=== PATIENT | male | born 1960 | race Caucasian/White ===

== ENCOUNTER 2019-09-21 13:45 | Emergency (ER) | payer BC, SELFPAY ==
--- NOTE | ~2019-09-21 | XR_ITS ---
EXAMINATION: XR chest 2V DATE: 09/21/2019 14:21 INDICATION: Right lower rib pain TECHNIQUE: Frontal and lateral views of the chest are obtained on four radiographs COMPARISON: 06/19/2015 FINDINGS: The lungs are free of acute opacities. There is no pleural effusion or pneumothorax. The ca rdiomediastinal silhouette is normal. There is mild thoracic spondylosis. IMPRESSION: 1. No acute cardiopulmonary abnormality. Reviewed, dictated and finalized at location A.
[2019-09-21 13:52] VITALS: BP 155/88; PULSE 88; RESP 20; TEMP 36.1; O2SAT 99
--- NOTE | 2019-09-21 14:11 | ED.GENADULT ---
HPI - General Adult General Chief complaint: Unspecified Stated complaint: tender front chest to back Time Seen by Provider: 09/21/19 14:04 Source: patient and RN notes reviewed Mode of arrival: ambulatory Limitations: no limitations History of Present Illness HPI narrative: Patient presents today with a one-month history of right anterior chest wall/skin pain that extends laterally to the mid back. States symptoms have not been improving, but wax and wanes. Denies recent illness, fever, cough, shortness of breath. No cardiac history.He currently rates his pain 6/10 and has been taking Tylenol arthritis with mild relief. States the pain feels similar to when he had shingles in the past, but has not had a rash or skin abnormality. MD complaint: chest wall pain Related Data Home Medications Medication Instructions Recorded Confirmed doxycycline hyclate 100 mg PO DAILY 09/21/19 09/21/19 etodolac 400 mg PO DAILY 09/21/19 09/21/19 losartan 100 mg PO DAILY 09/21/19 09/21/19 metronidazole 0.75 % TOPICAL DAILY 09/21/19 09/21/19 sildenafil 100 mg PO DAILY 09/21/19 09/21/19 Allergies Allergy/AdvReac Type Severity Reaction Status Date / Time celecoxib [From Celebrex] AdvReac Abdominal Verified 09/21/19 14:09 Pain Review of Systems Review of Systems: Narrative: CONSTITUTIONAL: Denies body aches, fever, chills, or sweats. EYES: Denies visual changes, redness, or discharge. ENT: Denies rhinorrhea, congestion, sore throat, or otalgia. CARDIOVASCULAR: Denies chest pain, palpitations, or edema.+Chest wall pain RESPIRATORY: Denies cough or dyspnea. GASTROINTESTINAL: Denies abdominal pain, nausea, vomiting, or diarrhea. GENITOURINARY: Denies dysuria or hematuria. SKIN: Denies rash, itching, or wounds. MUSCULOSKELETAL: Denies back pain, joint pain, or myalgia. NEUROLOGIC: Denies headache, numbness, tingling, or weakness. PSYCH: Denies depression or anxiety. [facility] Family History Family History (Updated 12/04/13 @ 07:13 by DOCTOR UNKNOWN) Sibling Family history of arthritis Family history of kidney disease Family history of malignant neoplasm of thyroid Mother Family history of Alzheimer's disease Father Family history of heart disease in male family member before age 55 Social History Social History Smoking status: Never smoker Alcohol intake: current Comments At time of signature, I have reviewed and agree with nursing past medical, surgical, social and family history unless otherwise noted. Please see nursing chart for further information. There is no relevant family history pertinent to the presenting complaint Exam Narrative: Exam Narrative: GENERAL: Well-appearing, well-nourished, and in no acute distress. HEAD: Normocephalic, atraumatic. EYES: EOMI. No redness or drainage. Conjunctivae normal. ENT: Mucous membranes pink and moist. NECK: Normal AROM. Supple. No lymphadenopathy. CHEST: No respiratory distress. Clear to auscultation. Patient localizes pain at the beginning at the right sternal border of the lower ribs, and extending in a dermatomal pattern laterally into the mid back. No rash or skin abnormalities noted. Mildly tender to palpation.No erythema, ecchymosis, edema, crepitus noted. HEART: Regular rate and rhythm. No murmur appreciated. Normal peripheral pulses. EXTREMITIES: Normal range of motion. No edema. SKIN: Warm, dry, no rash. Capillary refill normal. Normal skin turgor. NEURO: No focal deficits. Alert and oriented x3. Gait steady. PSYCH: Normal affect. No signs of depression or anxiety. Course Course Emergency Course: Chest x-ray is negative. Patient is describing pain is similar to previous shingles episodes. We will treat with some valacyclovir to see if there is any relief in symptoms. Instructed him to follow-up with his PCP in 3 to 4 days if symptoms do not improve. Vital Signs Vital signs: Vital Signs Temperature 97 F L 09/21/19 13:52 Pulse Rate 88 06/
== END 2019-09-21 14:44 | disposition home or self-care (01) ==
PROVIDERS: Emergency Provider Nurse Practitioner; PCP Family Medicine
DX: R07.89 Other chest pain (principal); I10 Essential (primary) hypertension; Z96.653 Presence of artificial knee joint, bilateral
CPT/HCPCS: 71046; 99203; G0463

== ENCOUNTER 2021-04-04 14:42 | Emergency (ER) | payer BC, SELFPAY ==
[2021-04-04 15:16] VITALS: BP 142/88; PULSE 93; RESP 20; TEMP 37.1; O2SAT 98
--- NOTE | 2021-04-04 16:41 | ED.URI ---
HPI - URI/Sore Throat General Chief Complaint: Upper Respiratory Infection Stated Complaint: sore throat runny nose Source: patient and RN notes reviewed Mode of arrival: ambulatory History of Present Illness HPI Narrative: This is a 60-year-old male that presented to urgent care with an itchy throat and runny nose and postnasal drainage. Patient notes that he took Mucinex at home and currently does not have any congestion. He is requesting an influenza and Covid vaccine. The patient denies SOB, CP, palpitation, extremity numbness, lightheadedness, dizziness, constipation, diarrhea, chills, or fever. Related Data Home Medications Medication Instructions Recorded Confirmed etodolac 400 mg PO DAILY 09/21/19 04/04/21 losartan 100 mg PO DAILY 09/21/19 04/04/21 metronidazole 0.75 % TOPICAL DAILY 09/21/19 09/21/19 sildenafil 100 mg PO DAILY 09/21/19 04/04/21 Allergies Allergy/AdvReac Type Severity Reaction Status Date / Time celecoxib [From Celebrex] AdvReac Abdominal Verified 04/04/21 16:29 Pain Review of Systems Review of Systems: A 14 organ system Review of Systems was performed and pertinent positives included in the HPI, otherwise remaining ROS is negative. [facility] Family History Family History Sibling Family history of arthritis Family history of kidney disease Family history of malignant neoplasm of thyroid Mother Family history of Alzheimer's disease Father Family history of heart disease in male family member before age 55 Social History Social History Smoking status: Never smoker Alcohol intake: current Exam Narrative: GENERAL: This is a well-nourished, well-developed patient, in no apparent distress. HEAD: normocephalic, atraumatic. EYES: PERRL. Sclera clear/white. Vision is grossly intact. EARS: External ears normal, auditory canals clear and without drainage, TMs normal without perforation. Hearing grossly intact. NOSE: External nose normal with no obvious nasal discharge, nares without redness, no rhinorrhea. THROAT: Mucous membranes moist, posterior pharynx clear. NECK: Neck supple, non-tender without lymphadenopathy, masses or thyromegaly. CARDIOVASCULAR: Regular rate and rhythm without murmurs, gallops, or rubs. RESPIRATORY: Clear to auscultation. Breath sounds equal bilaterally. No wheezes, rales, or rhonchi. GASTROINTESTINAL: Abdomen soft, non-tender, nondistended. Bowel sounds are active. No hepato-splenomegaly, or palpable masses. No guarding. SKIN: warm, intact with no suspicious lesions or rash, good texture and turgor. NEURO: awake, alert, and oriented to person, place and time. There were no obvious focal neurologic abnormalities. Steady gait EXTREMITIES: Normal range of motion. No edema. No calf tenderness. Negative Homans sign bilaterally. BACK: Nontender without deformity or crepitance. No flank tenderness. Course Course Emergency Course: Patient will be given guaifenesin, Claritin, for the treatment of viral syndrome Vital Signs Vital signs: Vital Signs Temperature 98.8 F 04/04/21 15:16 Pulse Rate 93 04/04/21 15:16 Respiratory Rate 20 04/04/21 15:16 Blood Pressure 142/88 H 04/04/21 15:16 Pulse Oximetry 98 04/04/21 15:16 Temperature 98.8 F 04/04/21 15:16 Pulse Rate 93 04/04/21 15:16 Respiratory Rate 20 04/04/21 15:16 Blood Pressure 142/88 H 04/04/21 15:16 Pulse Oximetry 98 04/04/21 15:16 MDM - URI/Sore Throat Differential Diagnosis Differential diagnosis: Likely upper respiratory infection, sinusitis, viral infection, influenza and pharyngitis Discharge Plan Discharge Clinical Impression: Viral infection Patient Disposition: Home, Self-Care Condition: Stable Instructions: Antibiotic Form, Viral Syndrome (ED) Additional Instructions: This is likely viral illness, no antibiotic is needed at this time. T
== END 2021-04-04 17:06 | disposition home or self-care (01) ==
PROVIDERS: Emergency Provider Nurse Practitioner; PCP Family Medicine
DX: B34.9 Viral infection, unspecified (principal); Z20.822 Contact with and (suspected) exposure to COVID-19
CPT/HCPCS: 87804; 99213; G0463

== ENCOUNTER → 2021-04-06 02:34 | Outpatient (CLI) | payer BC, SELFPAY ==
[2021-04-07 02:22] LABS: SARS-CoV-2 RNA PCR Negative
== END ==
PROVIDERS: PCP Family Medicine; Visit Provider Nurse Practitioner
DX: Z20.822 Contact with and (suspected) exposure to COVID-19 (principal)
CPT/HCPCS: C9803; U0003; U0005